=== PATIENT | female | born 2000 | race Caucasian/White ===

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

== ENCOUNTER 2021-05-24 21:53 | Emergency (ER) | payer MEDICAID ==
[~2021-05-24] VITALS: Ht 157.5 cm; Wt 90.7 kg
[~2021-05-24 21:53] MED LIST changes: +BACI1PAC6 TP; +NAPR-54 PO
[2021-05-24 22:00] VITALS: BP 128/70
--- NOTE | 2021-05-24 22:03 | NUR ---
to lobby a/w bed ambulatory
[2021-05-24 23:53] LABS: APPEARANCE,URINE CLEAR (CLEAR); BILIRUBIN,URINE NEGATIVE (NEGATIVE); BLOOD, URINE NEGATIVE (NEGATIVE); COLOR,URINE YELLOW (YELLOW); LEUKOCYTE ESTERASE ,URINE NEGATIVE (NEGATIVE); NITRITE, URINE NEGATIVE (NEGATIVE); UGLUCOSE NEGATIVE (NEGATIVE)
[2021-05-24] MEDS ORDERED: LACTATED RINGERS 1,000 ML IV ONE (23:55)
--- NOTE | 2021-05-25 00:09 | NUR ---
PT TAKEN TO ER BED 2
--- NOTE | 2021-05-25 00:11 | NUR ---
Patient BIB by family from home. C/O abdominal cramping , nausea and vomiting x 1 week. Patient reported, ~ 19 weeks, LMP January 14, 2021. .
[2021-05-25 00:13] LABS: BASOPHILS % (AUTO) 0.3 % (0.0-2.0); EOSINOPHILS # (AUTO) 0.1 K/uL (0-0.4); EOSINOPHILS % (AUTO) 1.2 % (0.0-4.0); HEMATOCRIT 34.4 % (36-48); HEMOGLOBIN 11.3 g/dL (12.0-16.0); LYMPHOCYTES # (AUTO) 2.1 K/uL (2.5-16.5); LYMPHOCYTES % (AUTO) 20.7 % (20.5-51.1); MEAN CORPUSCULAR HEMOGLOBIN 26 pg (27-31); MEAN CORPUSCULAR HGB CONC 33 g/dL (33-37); MEAN CORPUSCULAR VOLUME 78.4 fL (80-94); MONOCYTES # (AUTO) 0.9 K/uL (0.8-1.0); MONOCYTES % (AUTO) 8.7 % (1.7-9.3); NEUTROPHILS # (AUTO) 6.9 K/uL (1.8-7.7); NEUTROPHILS % (AUTO) 69.1 % (42.2-75.2); PLATELET COUNT (AUTO) 368 K/uL (140-450); RED BLOOD CELL COUNT(AUTO) 4.39 MIL/uL (4.20-5.40); RED CELL DISTRIBUTION WIDTH 18.3 % (11.6-13.7); WHITE BLOOD COUNT (AUTO) 9.9 K/uL (4.5-11.0)
--- NOTE | 2021-05-25 00:38 | NUR ---
Dr. Duckworth at bedside to exam patient.
[2021-05-25 00:47] LABS: ALBUMIN 3.3 g/dL (3.4-5.0); ANION GAP 13.5 (8-16); CARBON DIOXIDE 25.5 mmol/L (21-32); CREATININE 0.5 mg/dL (0.6-1.3); TOTAL BILIRUBIN 0.2 mg/dL (0.0-1.0)
[2021-05-25 01:49] VITALS: BP 128/70
--- NOTE | 2021-05-25 01:49 | NUR ---
Patient discharged with v/s stable. Written and verbal after care instructions given and explained. Patient verbalized understanding. Ambulatory with steady gait. All questions addressed prior to discharge. Advised to follow up with PMD.
== END 2021-05-25 01:49 | disposition home or self-care (01) ==
LOC: MED 21:53
DX: O21.8 Other vomiting complicating pregnancy (principal); O26.892 Other specified pregnancy related conditions, second trimester; F43.9 Reaction to severe stress, unspecified; Z3A.19 19 weeks gestation of pregnancy; Z79.899 Other long term (current) drug therapy
CPT/HCPCS: 36415; 80053; 81003; 81025; 83690; 85025; 96360; 99284; J7120

== ENCOUNTER 2021-06-05 16:25 | Observation (INO) | payer MEDICAID ==
[~2021-06-05] VITALS: Ht 154.9 cm; Wt 90.7 kg
[2021-06-05 16:58] VITALS: BP 109/58
[2021-06-05] MEDS ORDERED: PNV91TAB8 PO (17:37)
[2021-06-05] MEDS ORDERED: FERR-252 PO (17:37)
== END 2021-06-05 18:50 | disposition home or self-care (01) ==
LOC: MLD 16:25
PROVIDERS: ADMIT Obstetrics & Gynecology; ATTEND Obstetrics & Gynecology
DX: O26.892 Other specified pregnancy related conditions, second trimester (principal); R10.9 Unspecified abdominal pain; Z20.822 Contact with and (suspected) exposure to COVID-19; Z3A.21 21 weeks gestation of pregnancy
CPT/HCPCS: 76817; 87426; G0378; G0379; Q0092; 59025; 81000

== ENCOUNTER 2021-09-17 09:47 | Observation (INO) | payer MEDICAID ==
[~2021-09-17] VITALS: Ht 157.5 cm; Wt 98.0 kg
[~2021-09-17 09:47] MED LIST changes: -ALBU0.0912 IH; -BACI1PAC6 TP; +FERR-252 PO; -NAPR-54 PO; +PNV91TAB8 PO
[2021-09-17 10:40] VITALS: BP 112/60
== END 2021-09-17 11:15 | disposition home or self-care (01) ==
LOC: MLD 09:47
PROVIDERS: ADMIT Obstetrics & Gynecology; ATTEND Obstetrics & Gynecology
DX: O98.513 Other viral diseases complicating pregnancy, third trimester (principal); U07.1 COVID-19; Z3A.36 36 weeks gestation of pregnancy
CPT/HCPCS: G0378; G0379; 59025

== ENCOUNTER 2021-09-23 05:58 | Observation (INO) | payer MEDICAID ==
[~2021-09-23] VITALS: Ht 157.5 cm; Wt 98.0 kg
[2021-09-23 07:01] VITALS: BP 104/55
[2021-09-23] MEDS ORDERED: ACETAMINOPHEN 325 MG TAB PO PRN (07:30)
[2021-09-23] MEDS ORDERED: ACETAMINOPHEN 325 MG TAB ONE (07:46)
[2021-09-23] MEDS ORDERED: PNV91TAB8 PO (08:51)
[2021-09-23] MEDS ORDERED: FERR-147 PO (08:51)
== END 2021-09-23 09:10 | disposition home or self-care (01) ==
LOC: MLD 05:58
PROVIDERS: ADMIT Obstetrics & Gynecology; ATTEND Obstetrics & Gynecology
DX: O26.893 Other specified pregnancy related conditions, third trimester (principal); Z20.822 Contact with and (suspected) exposure to COVID-19; R10.11 Right upper quadrant pain; R51.9 Headache, unspecified; Z3A.37 37 weeks gestation of pregnancy
CPT/HCPCS: 76805; 87426; G0378; Q0092; 59025; 81000

== ENCOUNTER 2021-10-03 04:00 | Observation (INO) | payer MEDICAID ==
[~2021-10-03] VITALS: Ht 157.5 cm; Wt 98.0 kg
[~2021-10-03 04:00] MED LIST changes: +FERR-147 PO; -FERR-252 PO
[2021-10-03] MEDS ORDERED: ACETAMINOPHEN 325 MG TAB PO PRN (06:25)
[2021-10-03] MEDS ORDERED: ACETAMINOPHEN 325 MG TAB ONE (06:26)
--- NOTE | 2021-10-03 09:19 | NUR ---
PATIENT HAS BEEN SCREENED AND CATEGORIZED LOW NUTRITION RISK. PATIENT WILL BE SEEN WITHIN 7 DAYS OF ADMISSION. 10/10/21 REVIEWED BY JANNETTE ROSE [address]
== END 2021-10-03 08:50 | disposition home or self-care (01) ==
LOC: MFCC 04:00
PROVIDERS: ADMIT Obstetrics & Gynecology; ATTEND Obstetrics & Gynecology
DX: O62.9 Abnormality of forces of labor, unspecified (principal); Z20.822 Contact with and (suspected) exposure to COVID-19; Z3A.38 38 weeks gestation of pregnancy
CPT/HCPCS: 81000; 87426; G0378